=== PATIENT | male | born 2000 | race Hispanic/Latino ===

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

== ENCOUNTER → 2019-10-16 | Outpatient (REF) | payer OTHER ==
[2019-10-16 14:20] LABS: CHLAMYDIA DNA AMPLIFICATION NEGATIVE (NEGATIVE); GC DNA AMPLIFICATION NEGATIVE (NEGATIVE)
== END ==
LOC: M LAB REF 11:37
PROVIDERS: ATTEND Physician Assistant
DX: G47.33 Obstructive sleep apnea (adult) (pediatric) (principal); E03.9 Hypothyroidism, unspecified; E55.9 Vitamin D deficiency, unspecified

== ENCOUNTER 2020-12-17 10:34 | Emergency (ER) | payer OTHER ==
[~2020-12-17] VITALS: Ht 167.6 cm; Wt 70.5 kg
--- OUTSIDE RECORDS SUMMARY | 2020-12-17 12:21 | CCD ---
Author Author [facility] Organization [facility] Address Unknown Phone Unavailable Support Name Relationship Address Phone FEDEXG Next Of [place] [address] [place] [address] Norm SMILEYVal Next Of Kin [address] [place] [phone] Nunu Sewell Next Of Kin Unknown Unavailable Lesvia HAMILTONJosie Horton Next Of [address] [phone] Nilesh LOPEZ, Sapphire Next Of [address] [address] Maylin PUBLICITY MANAGER-C, Doretha Next Of Kin [address] [place] [phone] Evie PNP-C, Misty Baker Next Of Kin [address] [place] [phone] Jorden GONZALEZ, Sondra Next Of [address] [phone] JESSICA Galloway, Sapphire Next Of [address] [address] UE Next Of Kin Unknown Unavailable Sav GONZALEZ, Karri Amaro Next Of [address] [phone] Velмария PUBLICITY MANAGER-C PUBLICITY MANAGER-C, Doretha Next Of Kin [address] [place] [phone] Evie PNP-C, Gifty Next Of [address] [phone] [place] [address] ST Next Of Kin Unknown Unavailable MARLENA ERAZO Next Of Kin [address] [place], [place] [phone] KAROLINE PEDROZA Next Of Kin [address] [place] [address] Care Team Providers Care Writer Producer Name Role Phone Ling Lakhani DDS Unavailable Unavailable Dille, E Josie DDS Unavailable Unavailable Dille, E Josie DDS Unavailable Unavailable Dille, E Josie DDS Unavailable Unavailable Re-disclosure Warning The records that you are about to access may contain information from federally-assisted alcohol or drug abuse programs. If such information is present, then the following federally mandated warning applies: This information has been disclosed to you from records protected by federal confidentiality rules (42 CFR part 2). The federal rules prohibit you from making any further disclosure of this information unless further disclosure is expressly permitted by the written consent of the person to whom it pertains or as otherwise permitted by 42 CFR part 2. A general authorization for the release of medical or other information is NOT sufficient for this purpose. The Federal rules restrict any use of the information to criminally investigate or prosecute any alcohol or drug abuse patient.The records that you are about to access may contain highly sensitive health information, the redisclosure of which is protected by Article 27-F of the [facility] Public Health law. If you continue you may have access to information: Regarding HIV / AIDS; Provided by facilities licensed or operated by the [facility] Office of Mental Health; or Provided by the [facility] Office for People With Developmental Disabilities. If such information is present, then the following [facility] mandated warning applies: This information has been disclosed to you from confidential records which are protected by state law. State law prohibits you from making any further disclosure of this information without the specific written consent of the person to whom it pertains, or as otherwise permitted by law. Any unauthorized further disclosure in violation of state law may result in a fine or nursing home sentence or both. A general authorization for the release of medical or other information is NOT sufficient authorization for further disc losure. Encounters Encounter Providers Location Date Indications Data Source(s ) Outpatient Attender: Josie Lakhani DDS [facility] 06/25/2020 10:12:01 A [facility] Outpatient Attender: Josie Lakhani DDS [facility] 06/24/2020 03:28:00 P [facility] Outpatient Attender: Josie Lakhani DDS [facility] 06/24/2020 02:42:00 P [facility] Outpatient Attender: Josie Lakhani DDS [facility] 06/14/2020 04:37:01 P [facility] Outpatient Attender: oJsie Lakhani JOYSol [facility] 05/26/2020 12:58:00 P [facility] Outpatient Attender: Josie Lakhani JOYSol [facility] 05/10/2020 01:24:00 P [facility] Outpatient Attender: Josie Brendagaro [facility] 05/04/2020 04:20:01 P [facility] Outpatient Attender: Josie Lakhani [facility] 05/04/2020 04:19:01 P [facility] Outpatient Attender: Josie Brendagaro [facility] 05/03/2020 03:24:01 P [facility] Outpatient Attender: Josie Lakhani [facility] 04/22/2020 09:27:00 A [facility] Outpatient Attender: Josie Brendagaro [facility] 04/06/2020 07:48:00 A [facility] Outpatient Attender: Josie Lahkani [facility] 04/06/2020 07:47:01 A [facility] Outpatient Attender: Josie Brendagaro [facility] 04/05/2020 03:29:01 P [facility] Outpatient Attender: Josie Lakhani [facility] 04/05/2020 03:05:00 P [facility] Outpatient Attender: Josie Brendagaro [facility] 04/05/2020 08:18:00 A [facility] Outpatient Attender: Josie Brendagaro [facility] 12/05/2019 02:04:00 P [facility] Outpatient Attender: Josie Lesvia WEINER [facility] 11/03/2019 09:22:00 A [facility]: [facility] 11:04:00 [facility] Outpatient Attender: Josie Lakhani DDSol [facility] 11/01/2019 11:03:00 A [facility] Medications Medication Brand Name Start Date Product Form Dose Route Admi nistrative Instructions Pharmacy Instructions Status Indications Reaction Description Data Source(s) 875 mg 04/08/2020 12:00:00 AM EDT tablet 20 TAKE ONE TABLET BY MOUTH EVERY 12 HOURS FOR 10 DAYS TAKE ONE TABLET BY MOUTH EVERY 12 HOURS FOR 10 DAYS SO LD: 04/08/2020 [facility] Insurance Providers Payer name Policy type / Coverage type Policy ID Covered libertarian ID Covered libertarian's relationship to diaz Policy Diaz Plan Information [facility] [id number] SP [id number] [facility] Plan P [id number] S [id number] Medicaid S [id number] S [id number] Sliding Fee Scale O [id number] S [id number] [facility] P [id number] S [id number] [facility] P [id number] S [id number] Pupil Benefits (pr) Commercial [id number] Family Dependent [id number] Replaced By [facility] Plan Medigap Part B [id number] Self [id number] Pupil Benefits (pr) Commercial 16 Self 16 [facility] O [id number] S [id number] [facility] 301/[id number] SP [id number] Self Pay P none S none Self Pay P UNAVAILABLE S UNAVAILA BLE [facility] P [id number] S [id number] [facility]) O [id number] S [id number] Medicaid S [id number] S [id number] Medicaid P [id number] S [id number] [facility] P [id number] S [id number] PUPIL BENEFITS HEALTH PL S 07/07/14 S 07/07/14 MEDICAID [id number] SP [id number] D [facility] [id number] S [id number] D [facility] O [id number] S [id number] Medicaid Dental O [id number] S [id number] [facility] O [id number] S [id number] Problems, Conditions, and Diagnoses Code Display Name Description Problem Type Effective Dates Data Source(s) 521.03 DENTAL CARIES EXTENDING INTO PULP DENTAL CARIES EXTEND ING INTO PULP 05/04/2020 04:18:10 PM EDT [facility] Results ID Date Data Source [id number] 06/24/2020 02:49:19 PM EDT [facility] Patient History Medical History:Last [facility] Exam: [facility]Past Medical History is unremarkableLast eye exam - 2014concussion - football 07/30/2015Family History:FH AllergiesFH HeadachesFH DiabetesSocial/Personal History: Smoking Status: current every day smokerCurrent Problems: DENTAL CARIES EXTENDING INTO PULP (ICD-521.03) (DZQ45-F17.63)Vitamin D deficiency, unspecified (EZE85-O03.9)Screening for thyroid disorders (ICD-V77.0) (YZE40-T89.29)Screening for lipoid disorders (ICD-V77.91) (HYW25-I11.220)Screening for iron deficiency anemia (ICD-V78.0) (ZVS06-Y86.0)Shoulder pain, left (ICD-719.41) (ICD10- M25.512)ACNE VULGARIS (ICD-706.1) (CER47-L72.0)[place] teeth impaction (ICD- 520.6) (ZDV53-X71.1)MEDICATION MONITORING (ICD-V58.69) (KOQ12-G62.81)Well Child Exam WITH Abnormal Findings (under 18) (ICD-V20.2) (INB70-R43.121)Unspecified vitamin D deficiency (ICD-268.9) (ORL94-I04.9)Acne (ICD-706.1) (ICD10- L70.9)Other specified behavioral problem (ICD-V40.39) (LJG16-D74)Current Medications: DRISDOL 00584 UNIT ORAL CAPSULE (ERGOCALCIFEROL) ONE PILL ONCE A WEEK FOR 16 WEEKS; Route: ORALDOXYCYCLINE HYCLATE 100 MG ORAL CAPSULE (DOXYCYCLINE HYCLATE) ONE PILL TWICE A DAY FOR ONE DAY, THEN ONCE DAILY IN THE MORNING; Route: ORALCLEOCIN-T 1 % EXTERNAL SOLUTION (CLINDAMYCIN PHOSPHATE) USE TWICE A DAY TO CLEAN FACE FOR 2 WEEKS THEN DECREASE USE TO ONCE A DAY AT BEDTIME; Route: EXTERNALPast Medical History:(reviewed - no changes required) Last Dental Exam: 2013 [facility]Past Medical History is unremarkableLast eye exam - 2014concussion - football 07/30/2015 Dental Chart: Procedures:Type - CDT Code - Description C - (D2222) No Charge Visit (Performed by Meme Kennedy) Existing:Type - CDT Code - Description[E] Missing - [place] and Root On #1 Surface O Region XR, #14 Surface O Region XR, #16 Surface O Region XR, #17 Surface O Region XR Chart Alert:uhcProphy 2 every 12 monthsnext avail has an appt 04/16/2017Exam 1 per 6 month periodnext avail has an appt 04/16/2017Fl2 twice every 12 monthsthrough age 20next avail 04/16/2017Bwx twice every 12 monthsnext avail 04/16/2017Panorex 1 every 3 yearsnext avail no historySealants every 5 yearsage 5-15 Chart Notes:bryant (Jun 24 2020 3:27PM): Patient presented for Adult prophy and exam. Patient informed that he had his wisdom teeth removed by Dr. Márquez 5 days backs. Extraction sites were still open. I consulted with Dr. Lakhani about prophy. Dr. Lakhani recommended that we wait for 2 weeks, to prevent the risk of infection. When i informed this to the patient, he was upset and said " What the f". Informed patient not to use such language. Gave patient monojet to flush the area, and gave appt for octDismissed patient without any questions Meme Kennedy by bryant (06/24/2020 3:27 PM): Tooth Notes and Watches:- Tooth 3 Watch: Trisha Alva by eloisa (10/13/2016 1:19 PM): - Tooth 5 Dentition: changed from Permanent to Primary- Tooth 5 Dentition: changed from Permanent to Permanent- Tooth 6 Dentition: changed from Permanent to Primary- Tooth 6 Dentition: changed from Permanent to Permanent- Tooth C Note: 6 erupted BuccalGuiles Margo GUY by jguiles (02/06/2014 10:05 AM): Note: There are Un- Billed (C Type) procedures on this document.Assessment & Plan Medications:DRISDOL 95687 UNIT ORAL CAPSULEDOXYCYCLINE HYCLATE 100 MG ORAL CAPSULECLEOCIN-T 1 % EXTERNAL SOLUTIONAllergies:No Known Allergies (updated 10/16/2019) Name Value Range Interpretation Code Description Data Abeba rce(s) Supporting Document(s) ID Date Data Source [id number] 05/26/2020 10:25:03 AM EDT [facility] Current Problems: DENTAL CARIES EXTENDIN G INTO PULP (ICD-521.03) (ICD10- K02.63)Vitamin D deficiency, unspecified (TOX40-E82.9)Screening for thyroid disorders (ICD-V77.0) (GAY82-P44.29)Screening for lipoid disorders (ICD-V77.91) (QJE26-U05.220)Screening for iron deficiency anemia (ICD-V78.0) (ICD10- Z13.0)Shoulder pain, left (ICD-719.41) (YBK84-T88.512)ACNE VULGARIS (ICD-706.1) (VZA01-R09.0)[place] teeth impaction (ICD-520.6) (PYJ51-S36.1)MEDICATION MONITORING (ICD-V58.69) (PCO23-G51.81)Well Child Exam WITH Abnormal Findings (under 18) (ICD-V20.2) (TGZ17-O11.121)Unspecified vitamin D deficiency (ICD-26 8.9) (BGK50-B04.9)Acne (ICD-706.1) (ZSD53-W62.9)Other specified behavioral problem (ICD-V40.39) (SWN24-P17)Current Medications: DRISDOL 07059 UNIT ORAL CAPSULE (ERGOCALCIFEROL) ONE PILL ONCE A WEEK FOR 16 WEEKS; Route: ORALDOXYCYCLINE HYCLATE 100 MG ORAL CAPSULE (DOXYCYCLINE HYCLATE) ONE PILL TWICE A DAY FOR ONE DAY, THEN ONCE DAILY IN THE MORNING; Route: ORALCLEOCIN-T 1 % EXTERNAL SOLUTION (CLINDAMYCIN PHOSPHATE) USE TWICE A DAY TO CLEAN FACE FOR 2 WEEKS THEN DECREASE USE TO ONCE A DAY AT BEDTIME; Route: EXTERNAL Dental Chart: Procedures:Type - CDT Code - Description B - (D2140) Amalgam-one surface, primary or permanent on Tooth # 29 on Tooth Surface O (Performed by Val Zheng DMD) B - (D2150) Amalgam, 2 surfaces, primary or permanent on Tooth # 3 on Tooth Surface MO (Performed by Val Zheng DMD) B - (D2150) Amalgam, 2 surfaces, primary or permanent on Tooth # 32 on Tooth Surface OB (Performed by Val Zheng DMD) Chart Alert:uhcProphy 2 every 12 monthsnext avail has an appt 04/16/2017Exam 1 per 6 month periodnext avail has an appt 04/16/2017Fl2 twice every 12 monthsthrough age 20next avail 04/16/2017Bwx twice every 12 monthsnext avail 04/16/2017Panorex 1 every 3 yearsnext avail no historySealants every 5 yearsage 5-15 Chart Notes:elicia (May 26 2020 12:57PM): [facility] (N/C Per Pt.). Took temp@ F. Additional PPE requirements due to COVID-19 in the dental setting, N95, surgical mask, hair covering, gown CC: none. Cetacaine spray used as topical. UR Infiltration and LR INB 1 carp Lidocaine HCL 2% with 1:100,000 epi. Operative: #3-MO Gluma and Amalgam #32-OB #29-O Limelight placed and light cured and amalgam. Excavated with High Speed, Slow Speed and Spoon. Occlusion checked and polished. No complications. POI given to pt. advised pt. to stay away from extreme hot and cold as to not irritate teeth and need rct in future. Assisted by WILI Pt was cooperative. NV: recall Val Zheng DMD by elicia (05/26/2020 12:57 PM): Tooth Notes and Watches:- Tooth 3 Watch: Trisha Alva by eloisa (10/13/2016 1:19 PM): - Tooth 5 Dentition: changed from Permanent to Primary- Tooth 5 Dentition: changed from Permanent to Permanent- Tooth 6 Dentition: changed from Permanent to Primary- Tooth 6 Dentition: changed from Permanent to Permanent- Tooth C Note: 6 erupted BuccalGuiles Margo GUY by tad (02/06/2014 10:05 AM): Assessment & Plan Medications:DRISDOL 48238 UNIT ORAL CAPSULEDOXYCYCLINE HYCLATE 100 MG ORAL CAPSULECLEOCIN-T 1 % EXTERNAL SOLUTIONAllergies:No Known Allergies (updated 10/16/2019) P M Name Value Range Interpretation Code Description Data Abeba rce(s) Supporting Document(s) ID Date Data Source [id number] 05/04/2020 03:27:02 PM EDT [facility] Current Problems: DENTAL CARIES EXTENDIN G INTO PULP (ICD-521.03) (ICD10- K02.63)Vitamin D deficiency, unspecified (TPM23-X19.9)Screening for thyroid disorders (ICD-V77.0) (HPZ55-K02.29)Screening for lipoid disorders (ICD-V77.91) (CPW52-Y26.220)Screening for iron deficiency anemia (ICD-V78.0) (ICD10- Z13.0)Shoulder pain, left (ICD-719.41) (LPF04-P72.512)ACNE VULGARIS (ICD-706.1) (RNV11-C38.0)[place] teeth impaction (ICD-520.6) (AUF80-L88.1)MEDICATION MONITORING (ICD-V58.69) (BZA07-R78.81)Well Child Exam WITH Abnormal Findings (under 18) (ICD-V20.2) (OGE80-Z23.121)Unspecified vitamin D deficiency (ICD-26 8.9) (EIG24-S10.9)Acne (ICD-706.1) (NAP90-V76.9)Other specified behavioral problem (ICD-V40.39) (MRB19-A14)Current Medications: DRISDOL 82924 UNIT ORAL CAPSULE (ERGOCALCIFEROL) ONE PILL ONCE A WEEK FOR 16 WEEKS; Route: ORALDOXYCYCLINE HYCLATE 100 MG ORAL CAPSULE (DOXYCYCLINE HYCLATE) ONE PILL TWICE A DAY FOR ONE DAY, THEN ONCE DAILY IN THE MORNING; Route: ORALCLEOCIN-T 1 % EXTERNAL SOLUTION (CLINDAMYCIN PHOSPHATE) USE TWICE A DAY TO CLEAN FACE FOR 2 WEEKS THEN DECREASE USE TO ONCE A DAY AT BEDTIME; Route: EXTERNAL Dental Chart: Procedures:Type - CDT Code - Description B - (D0120) Periodic oral evaluation - established patient (Performed by Val Zheng DMD) B - (D0274) Bitewings, 4 radiographic images (Performed by Val Zheng DMD) Treatments:Type - CDT Code - Description T - (D7140) Extraction, erupted tooth or exposed root (elevation and/or forceps removal) on Tooth # 14 (Performed by Val Zheng DMD) Chart Alert:uhcProphy 2 every 12 monthsnext avail has an appt 04/16/2017Exam 1 per 6 month periodnext avail has an appt 04/16/2017Fl2 twice every 12 monthsthrough age 20next avail 04/16/2017Bwx twice every 12 monthsnext avail 04/16/2017Panorex 1 every 3 yearsnext avail no historySealants every 5 yearsage 5-15 Chart Notes:jlam (May 04 2020 4:18PM): [facility](-)per pt. CC: none. Took 4 BWX's, Reviewed Xrays. Exam: caries detected. OCS: WNL, IO/ EO completed, No significant hard findings upon clinical exam. Endo Ice tested #14 WNR. Advised pt. to have RCT and crown on #14 or to extract. Pt. opts to have extracted with wisdom teeth. Additional PPE requirements due to COVID-19 in the dental setting, N95, surgical mask, hair covering, gown and shieldPt was cooperative. OHI given Referral: N/A NV:restorations.Val Zheng DMD by elicia (05/04/2020 4:18 PM): Tooth Notes and Watches:- Tooth 3 Watch: Nida Trisha by eloisa (10/13/2016 1:19 PM): - Tooth 5 Dentition: changed from Permanent to Primary- Tooth 5 Dentition: changed from Permanent to Permanent- Tooth 6 Dentition: changed from Permanent to Primary- Tooth 6 Dentition: changed from Permanent to Permanent- Tooth C Note: 6 erupted BuccalGuiles Margo GUY by tad (02/06/2014 10:05 AM): Assessment & Plan Problems:Added: DENTAL CARIES EXTENDING INTO PULP (ICD-521.03) (OYM39-L03.63)Medications:DRISDOL 16259 UNIT ORAL CAPSULEDOXYCYCLINE HYCLATE 100 MG ORAL CAPSULECLEOCIN-T 1 % EXTERNAL SOLUTIONAllergies:No Known Allergies (updated 10/16/2019) Name Value Range Interpretation Code Description Data Abeba rce(s) Supporting Document(s) ID Date Data Source [id number] 04/05/2020 02:50:10 PM EDT [facility] Current Problems: Vitamin D deficiency, unspecified (WLF19-O78.9)Screening for thyroid disorders (ICD-V77.0) (OUB22-F40.29)Screening for lipoid disorders (ICD- V77.91) (BXI34-G08.220)Screening for iron deficiency anemia (ICD-V78.0) (ICD10- Z13.0)Shoulder pain, left (ICD-719.41) (LNG68-L00.512)ACNE VULGARIS (ICD-706.1) (LSM33-S14.0)[place] teeth impaction (ICD-520.6) (WXR36-Y64.1)MEDICATION MONITORING (ICD-V58.69) (HJA58-L73.81)Well Child Exam WITH Abnormal Findings (under 18) (ICD-V20.2) (JQR08-D91.121)Unspecified vitamin D deficiency (ICD- 268.9) (HAY24-G24.9)Acne (ICD-706.1) (VNZ53-E18.9)Other specified behavioral problem (ICD-V40.39) (DCC19-V21)Current Medications: DRISDOL 97252 UNIT ORAL CAPSULE (ERGOCALCIFEROL) ONE PILL ONCE A WEEK FOR 16 WEEKS; Route: ORALDOXYCYCLINE HYCLATE 100 MG ORAL CAPSULE (DOXYCYCLINE HYCLATE) ONE PILL TWICE A DAY FOR ONE DAY, THEN ONCE DAILY IN THE MORNING; Route: ORALCLEOCIN-T 1 % EXTERNAL SOLUTION (CLINDAMYCIN PHOSPHATE) USE TWICE A DAY TO CLEAN FACE FOR 2 WEEKS THEN DECREASE USE TO ONCE A DAY AT BEDTIME; Route: EXTERNAL Dental Chart: Procedures:Type - CDT Code - Description B - (D0140) Limited oral evaluation - problem focused on Tooth # 17 (Performed by Val Zheng DMD) B - (D1999) Unspecified preventive procedure, by report on Tooth # 17 (Performed by Val Zheng DMD) Chart Alert:uhcProphy 2 every 12 monthsnext avail has an appt 04/16/2017Exam 1 per 6 month periodnext avail has an appt 04/16/2017Fl2 twice every 12 monthsthrough age 20next avail 04/16/2017Bwx twice every 12 monthsnext avail 04/16/2017Panorex 1 every 3 yearsnext avail no historySealants every 5 yearsage 5-15 Chart Notes:elicia (Apr 05 2020 3:28PM): Additional PPE requirements due to COVID-19 in the dental setting, N95, surgical mask, hair covering, gown S: CC: " I am having pain on the bottom left side of my mouth. It is my wisdom tooth. I feel swollen and I need to know where I was sent to to have them removed." O: [facility] (-) per pt. no allergies. HPI: A few days PL: 7.BP: 129/75 No xray taken today as Panorex taken a few months ago. #17 decayed into the pulp. No signs of infection at this time.A: DDS recommends to follow up with OS referral , DX:#17 decayed into pulp.P:follow up with OSInformed Pt about new pain management policy of the clinic regarding about narcotic,told pt to alternate Ibuprophen 600- 800mg and tylenol 500mg ever y 4 to 6 hrs for pain when needed. Assisted By:AM NV: resto. Montelongo/Val Darling DMD by elicia (04/05/2020 3:25 PM): Val Zheng DMD by elicia (04/05/2020 3:28 PM): Tooth Notes and Watches:- Tooth 3 Watch: Trisha Alva by eloisa (10/13/2016 1:19 PM): - Tooth 5 Dentition: changed from Permanent to Primary- Tooth 5 Dentition: changed from Permanent to Permanent- Tooth 6 Dentition: changed from Permanent to Primary- Tooth 6 Dentition: changed from Permanent to Permanent- Tooth C Note: 6 erupted BuccalGuiles Margo GUY by tad (02/06/2014 10:05 AM): Assessment & Plan Medications:DRISDOL 81385 UNIT ORAL CAPSULEDOXYCYCLINE HYCLATE 100 MG ORAL CAPSULECLEOCIN-T 1 % EXTERNAL SOLUTIONAllergies:No Known Allergies (updated 10/16/2019) Name Value Range Interpretation Code Description Data Abeba rce(s) Supporting Document(s) ID Date Data Source [id number] 12/05/2019 12:35:57 PM [facility] Current Problems: Vitamin D deficiency, unspecified (YFP30-R90.9)Screening for thyroid disorders (ICD-V77.0) (RSL71-U41.29)Screening for lipoid disorders (ICD- V77.91) (KBP05-M75.220)Screening for iron deficiency anemia (ICD-V78.0) (ICD10- Z13.0)Shoulder pain, left (ICD-719.41) (KQF74-K59.512)ACNE VULGARIS (ICD-706.1) (SKQ03-N75.0)[place] teeth impaction (ICD-520.6) (QSL76-O67.1)MEDICATION MONITORING (ICD-V58.69) (HNZ96-Q49.81)Well Child Exam WITH Abnormal Findings (under 18) (ICD-V20.2) (YZL13-Z46.121)Unspecified vitamin D deficiency (ICD- 268.9) (ZRU14-Q93.9)Acne (ICD-706.1) (QGJ03-H94.9)Other specified behavioral problem (ICD-V40.39) (QMI64-A66)Current Medications: DRISDOL 39161 UNIT ORAL CAPSULE (ERGOCALCIFEROL) ONE PILL ONCE A WEEK FOR 16 WEEKS; Route: ORALDOXYCYCLINE HYCLATE 100 MG ORAL CAPSULE (DOXYCYCLINE HYCLATE) ONE PILL TWICE A DAY FOR ONE DAY, THEN ONCE DAILY IN THE MORNING; Route: ORALCLEOCIN-T 1 % EXTERNAL SOLUTION (CLINDAMYCIN PHOSPHATE) USE TWICE A DAY TO CLEAN FACE FOR 2 WEEKS THEN DECREASE USE TO ONCE A DAY AT BEDTIME; Route: EXTERNAL Dental Chart: Procedures:Type - CDT Code - Description B - (D2150) Amalgam, 2 surfaces, primary or permanent on Tooth # 18 on Tooth Surface MO (Performed by Val Zheng DMD) B - (D2161) Amalgam, 4 or more surfaces, primary or permanent on Tooth # 19 on Tooth Surface OMDB (Performed by Val Zheng DMD) B - (D2150) Amalgam, 2 surfaces, primary or permanent on Tooth # 20 on Tooth Surface DO (Performed by Val Zheng DMD) Chart Alert:uhcProphy 2 every 12 monthsnext avail has an appt 04/16/2017Exam 1 per 6 month periodnext avail has an appt 04/16/2017Fl2 twice every 12 monthsthrough age 20next avail 04/16/2017Bwx twice every 12 monthsnext avail 04/16/2017Panorex 1 every 3 yearsnext avail no historySealants every 5 yearsage 5-15 Chart Notes:elicia (Dec 05 2019 2:03PM): [facility] (N/C Per Pt.). CC: none. Hurricaine Watermelon Topical, LL IANB 1 carp Lidocaine HCL 2% with 1:100,000 epi. Operative: #18-MO 19-MODB 20- DO Gluma and Amalgam. Excavated with High Speed, Slow Speed and Spoon. Occlusion checked. No complications. POI given to pt. Assisted by Cassie was cooperative. NV: Val Marino DMD by elicia (12/05/2019 2:03 PM): Tooth Notes and Watches:- Tooth 3 Watch: Trisha Alva by eloisa (10/13/2016 1:19 PM): - Tooth 5 Dentition: changed from Permanent to Primary- Tooth 5 Dentition: changed from Permanent to Permanent- Tooth 6 Dentition: changed from Permanent to Primary- Tooth 6 Dentition: changed from Permanent to Permanent- Tooth C Note: 6 erupted BuccalGuMargo vela RDH by tad (02/06/2014 10:05 AM): Name Value Range Interpretation Code Description Data Abeba rce(s) Supporting Document(s) Procedure
[2020-12-17 12:28] VITALS: BP 116/62
[2020-12-17 13:13] LABS: CHLAMYDIA DNA AMPLIFICATION NEGATIVE (NEGATIVE); GC DNA AMPLIFICATION NEGATIVE (NEGATIVE)
== END 2020-12-17 12:30 | disposition home or self-care (01) ==
LOC: M ED 10:34
DX: J06.9 Acute upper respiratory infection, unspecified (principal); Z20.822 Contact with and (suspected) exposure to COVID-19; Z72.51 High risk heterosexual behavior; R68.83 Chills (without fever); R09.81 Nasal congestion; R51.9 Headache, unspecified
CPT/HCPCS: 87661; 99283; U0003

== ENCOUNTER → 2020-12-19 | Outpatient (REF) | payer OTHER | LOC: M LAB REF 17:30 | PROVIDERS: ATTEND Physician Assistant Medical | DX: J03.90 Acute tonsillitis, unspecified (principal) ==

== ENCOUNTER 2020-12-31 12:40 | Emergency (ER) | payer OTHER ==
[~2020-12-31] VITALS: Ht 167.6 cm; Wt 69.5 kg
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
[2020-12-31 15:08] LABS: CK-MB VALUE MASS 1.6 NG/ML (<3.6); CPK CREATINE PHOSPHOKINASE 120 U/L (39-308); MB/CK RELATIVE INDEX 1.33 (< OR =4); TROPONIN I < 0.02 NG/ML (< 0.10)
[2020-12-31 15:28] VITALS: BP 136/75
--- NOTE | 2020-12-31 20:13 | ECGEPIP ---
[facility] - ED Test Date: 2020-12-31 Pat Name: TRACEY ERAZO Department: Room: - Gender: Male [employer] Builder: TRINA : 2000 Requested By: ARJUN Zabala PA-C Order Number: [id number] Reading MD: Brandi Marquez Measurements Intervals [place] Rate: 59 P: 41 WV: 154 QRS: 78 QRSD: 86 T: 56 QT: 390 QTc: 386 Interpretive Statements Sinus bradycardia ST elevation, probably due to early repolarization No prior Electronically Signed on 12-31-2020 20:14:01 EST by Brandi Marquez
== END 2020-12-31 15:29 | disposition home or self-care (01) ==
LOC: M ED 12:40
DX: S20.219A Contusion of unspecified front wall of thorax, initial encounter (principal); S16.1XXA Strain of muscle, fascia and tendon at neck level, initial encounter; R51.9 Headache, unspecified; V43.52XA Car driver injured in collision with other type car in traffic accident, initial encounter; Y92.9 Unspecified place or not applicable; Y93.9 Activity, unspecified; Y99.9 Unspecified external cause status; R00.1 Bradycardia, unspecified; Z87.891 Personal history of nicotine dependence

== ENCOUNTER 2021-08-07 06:54 | Emergency (ER) | payer OTHER ==
[~2021-08-07] VITALS: Ht 167.6 cm; Wt 67.5 kg
[2021-08-07] MEDS ORDERED: LIDOCAINE W/EPINEPHRINE 1% 20ML VIAL SC ONE (08:55)
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
[2021-08-07 10:01] VITALS: BP 138/70
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
== END 2021-08-07 10:05 | disposition home or self-care (01) ==
LOC: M ED 06:54
DX: S60.211A Contusion of right wrist, initial encounter (principal); S01.81XA Laceration without foreign body of other part of head, initial encounter; K04.8 Radicular cyst; Y04.0XXA Assault by unarmed brawl or fight, initial encounter; Y92.9 Unspecified place or not applicable; Y93.9 Activity, unspecified; Y99.9 Unspecified external cause status; F17.200 Nicotine dependence, unspecified, uncomplicated; Z91.013 Allergy to seafood

== ENCOUNTER 2022-09-09 12:19 | Inpatient (IN) | payer MEDICAID, OTHER ==
[~2022-09-09] VITALS: Ht 167.6 cm; Wt 67.8 kg
[2022-09-09] MEDS ORDERED: NS 1,000 ML IV ONE (12:45)
[2022-09-09 12:54] LABS: BASO % 0.2 % (0.0-1.0); EOS # 0.1 10^3/uL (0.0-0.5); EOS % 1.2 % (0.0-3.0); HEMATOCRIT 40.8 % (42.0-52.0); HEMOGLOBIN 14.1 g/dl (13.5-17.5); LYMPH # 1.6 10^3/uL (1.5-5.0); LYMPH % 19.1 % (24.0-44.0); MEAN CORPUSCULAR HEMOGLOBIN 29.1 pg (27.0-33.0); MEAN CORPUSCULAR HGB CONC 34.6 g/dl (32.0-36.5); MEAN CORPUSCULAR VOLUME 84.3 fl (80.0-96.0); MONO # 0.5 10^3/uL (0.0-0.8); NEUTROPHILS # 6.1 10^3/uL (1.5-8.5); NEUTROPHILS % 73.1 % (36.0-66.0); PLATELET COUNT, AUTOMATED 244 10^3/uL (150-450); RED BLOOD COUNT 4.84 10^6/uL (4.30-6.10); WHITE BLOOD COUNT 8.3 10^3/uL (4.0-10.0)
[2022-09-09 13:32] LABS: RSV AMPLIFICATION NEGATIVE (NEGATIVE)
[2022-09-09 13:58] LABS: ACETAMINOPHEN LEVEL < 2.0 UG/ML (10.0-30.0); ALBUMIN 3.8 GM/DL (3.2-5.2); ALT/SGPT 19 U/L (12-78); BILIRUBIN,DIRECT 0.3 MG/DL (0.0-0.2); BILIRUBIN,TOTAL 0.8 MG/DL (0.2-1.0); BLOOD UREA NITROGEN 5 MG/DL (7-18); CALCIUM LEVEL 8.9 MG/DL (8.5-10.1); CARBON DIOXIDE LEVEL 28 MEQ/L (21-32); CHLORIDE LEVEL 107 MEQ/L (98-107); CREATININE FOR GFR 0.98 MG/DL (0.70-1.30); ETHYL ALCOHOL (ETHANOL) 0.025 % (0.000-0.010); GLOMERULAR FILTRATION RATE > 60.0 (>60); GLUCOSE, FASTING 85 MG/DL (70-100); POTASSIUM SERUM 3.9 MEQ/L (3.5-5.1); SALICYLATE LEVEL < 1.7 MG/DL (5.0-30.0); SODIUM LEVEL 140 MEQ/L (136-145); THYROID STIMULATING HORMONE 0.806 uIU/ML (0.358-3.740)
[2022-09-09 17:36] LABS: AMPHETAMINES LEVEL URINE NEGATIVE (NEGATIVE); BARBITURATES URINE NEGATIVE (NEGATIVE); BENZODIAZEPINES URINE NEGATIVE (NEGATIVE); CANNABINOIDS URINE POSITIVE (NEGATIVE); COCAINE METABOLITE URINE NEGATIVE (NEGATIVE); METHADONE URINE NEGATIVE (NEGATIVE); OPIATES URINE NEGATIVE (NEGATIVE); PHENCYCLIDINE URINE NEGATIVE (NEGATIVE)
[2022-09-09] MEDS ORDERED: HOME MED LIST COMPLETE! XX SCH (22:50)
[2022-09-11] MEDS ORDERED: IBUPROFEN 400MG TAB PO PRN (13:30)
[2022-09-11] MEDS ORDERED: traZODone 50 MG TAB PO PRN (13:30)
[2022-09-11] MEDS ORDERED: MAALOX 30 ML SUSP *UDC PO PRN (13:30)
[2022-09-11] MEDS ORDERED: MOM 30ML SUSPENSION UDC PO PRN (13:30)
[2022-09-11] MEDS ORDERED: LORazepam 2 MG TAB PO PRN (13:30)
[2022-09-11 14:26] LABS: RSV AMPLIFICATION NEGATIVE (NEGATIVE)
[2022-09-11 16:40] VITALS: BP 130/76
[2022-09-11 16:45] VITALS: BP 130/76
[2022-09-11] MEDS: NICOTINE 21MG/24HR 1 EA TRANSDERMAL TD SCH (17:43)
[2022-09-11] MEDS: THIAMINE 100 MG TAB PO SCH ×2 (17:43→21:00)
[2022-09-11] MEDS: MULTIVITAMINS/MINERALS THERAP 1 TAB PO SCH (17:43)
[2022-09-11] MEDS: FOLIC ACID 1MG TAB PO SCH (17:44)
[2022-09-11 22:51] VITALS: BP 117/72
[2022-09-12 06:37] VITALS: BP 113/59
[2022-09-12 06:43] VITALS: BP 113/59
[2022-09-12] MEDS: FOLIC ACID 1MG TAB PO SCH (09:00)
[2022-09-12] MEDS: MULTIVITAMINS/MINERALS THERAP 1 TAB PO SCH (09:00)
[2022-09-12] MEDS: THIAMINE 100 MG TAB PO SCH (09:00)
[2022-09-12] MEDS: NICOTINE 21MG/24HR 1 EA TRANSDERMAL TD SCH (09:00)
[2022-09-12 18:05] VITALS: BP 124/60
[2022-09-13 06:20] VITALS: BP 122/56
[2022-09-13] MEDS: NICOTINE 21MG/24HR 1 EA TRANSDERMAL TD SCH (09:00)
[2022-09-13] MEDS: PROPRANOLOL 10 MG TAB PO SCH ×3 (09:40→20:07)
[2022-09-13 18:13] VITALS: BP 122/72
[2022-09-14 06:10] VITALS: BP 105/52
[2022-09-14] MEDS: NICOTINE 21MG/24HR 1 EA TRANSDERMAL TD SCH (08:09)
[2022-09-14 08:11] VITALS: BP 138/73
[2022-09-14] MEDS: PROPRANOLOL 10 MG TAB PO SCH (08:11)
[2022-09-14] MEDS ORDERED: NICO21PAT TD (10:32)
[2022-09-14] MEDS ORDERED: PROP10TA56 PO (10:32)
== END 2022-09-14 12:06 | disposition home or self-care (01) | DRG 756 ==
LOC: M ED 12:19 → M ED INP 09-11 13:30 → M PSY 09-11 16:40
PROVIDERS: ADMIT Student in an Organized Health Care Education/Training Program; ATTEND Psychiatry & Neurology Psychiatry
DX: F41.8 Other specified anxiety disorders (principal); F43.20 Adjustment disorder, unspecified; F60.89 Other specific personality disorders; T14.91XA Suicide attempt, initial encounter; T50.992A Poisoning by other drugs, medicaments and biological substances, intentional self-harm, initial encounter; T43.222A Poisoning by selective serotonin reuptake inhibitors, intentional self-harm, initial encounter; T51.92XA Toxic effect of unspecified alcohol, intentional self-harm, initial encounter; T43.212A Poisoning by selective serotonin and norepinephrine reuptake inhibitors, intentional self-harm, initial encounter; Z20.822 Contact with and (suspected) exposure to COVID-19; Z91.013 Allergy to seafood; F10.920 Alcohol use, unspecified with intoxication, uncomplicated; Z63.0 Problems in relationship with spouse or partner

== ENCOUNTER → 2023-01-03 | Outpatient (REF) ==
[~2023-01-03] MED LIST: NICO21PAT TD; PROP10TA56 PO
== END ==
LOC: M EMP 08:00
PROVIDERS: ATTEND Family Medicine
DX: Z11.52 Encounter for screening for COVID-19 (principal)

== ENCOUNTER → 2023-01-08 | Outpatient (REF) | LOC: M EMP 09:29 | PROVIDERS: ATTEND Family Medicine | DX: Z11.52 Encounter for screening for COVID-19 (principal) ==

== ENCOUNTER → 2023-01-16 | Outpatient (REF) | LOC: M EMP 08:15 | PROVIDERS: ATTEND Family Medicine | DX: Z11.52 Encounter for screening for COVID-19 (principal) ==

== ENCOUNTER → 2023-01-22 | Outpatient (REF) | LOC: M EMP 09:53 | PROVIDERS: ATTEND Family Medicine | DX: Z11.52 Encounter for screening for COVID-19 (principal) ==

== ENCOUNTER 2025-07-04 20:43 | Emergency (ER) | payer MEDICAID, OTHER ==
[~2025-07-04] VITALS: Ht 167.6 cm; Wt 81.8 kg
[2025-07-04 21:01] VITALS: TEMP 98.6
[2025-07-04] MEDS ORDERED: SFHIBU600 PO (23:30)
[2025-07-04 23:46] VITALS: BP 128/61; O2SAT 99
== END 2025-07-04 23:50 | disposition home or self-care (01) ==
LOC: M ED 20:43
DX: S93.402A Sprain of unspecified ligament of left ankle, initial encounter (principal); X58.XXXA Exposure to other specified factors, initial encounter; Y92.009 Unspecified place in unspecified non-institutional (private) residence as the place of occurrence of the external cause; Y93.9 Activity, unspecified; Y99.9 Unspecified external cause status; F32.A Depression, unspecified; Z91.51 Personal history of suicidal behavior; Z79.899 Other long term (current) drug therapy; Z91.013 Allergy to seafood